=== PATIENT | male | born 1960 | race Caucasian/White ===

== ENCOUNTER → 2017-02-25 | Outpatient (CLI) | payer MEDICAID ==
[~2017-02-25] MED LIST: CLINDAMYCIN HC300 MG PO; FENOFIBRATE160 MG PO; GLIPIZIDE 5MG TA5 MG PO; HYDROCODONE-APA1 TA1 PO; LISINOPRIL2.5 M1 PO; LOVASTATIN20 MG PO; LOW DOSE ASPIRI81 MG PO; METFORMIN1000 MG PO; OMEPRAZOLE20 MG PO
[2017-02-25 12:02] LABS: HEMOGLOBIN 17.1 g/dL (14.1-18.0); LYMPH # 2.8 K/mm3 (0.7-4.5); LYMPH % 29.7 % (10-50)
[2017-02-25 12:18] LABS: BUN 21 mg/dL (7-18)
[2017-02-25 12:21] LABS: GFR (ESTIMATED) 69 ML/MIN (>60)
== END ==
LOC: LAB 11:25
PROVIDERS: Nurse Practitioner Family
DX: R53.83 Other fatigue (principal); Z79.899 Other long term (current) drug therapy